=== PATIENT | male | born 1965 | race Caucasian/White ===

== ENCOUNTER 2018-12-11 05:11 | Emergency (ER) | payer OTHER ==
[~2018-12-11] VITALS: Ht 185.4 cm; Wt 108.9 kg
[2018-12-11 05:15] VITALS: BP 136/82
[2018-12-11] MEDS ORDERED: Oxymetazoline 0.05% Na Spray 30ml NASAL ONE (05:30)
--- NOTE | 2018-12-11 05:54 | Emergency Room Report ---
History of Present Illness General Chief Complaint: Seizure Source: Patient (Ben Shafer MD) Present Illness HPI Patient is a 53-year-old male brought in by EMS after witnessed seizure. Patient was noted to be postictal initially after incident. Patient a prior history of brain surgery due to surgical complication from a nasal surgery. He reports taking Keppra 1500 mg twice a day and states his been compliant with his medications. He denies any recent illness. He had reportedly not been having a recent illnesses. (Ben Shafer MD) Allergies: Coded Allergies: No Known Allergies (Unverified , 12/11/18) Patient History Past Medical History: see triage record Reviewed Nursing Documentation: PMH: Agreed; PSxH: Agreed (Ben Shafer MD) Nursing Documentation-PMH Past Medical History: No Stated History (Ben Shafer MD) Review of Systems All Other Systems: negative except mentioned in HPI (Ben Shafer MD) Physical Exam Vital Signs Date Time Temp Pulse Resp B/P (MAP) Pulse Ox O2 Delivery O2 Flow Rate FiO2 12/11/18 05:14 98.2 100 20 136/82 (100) 98 Room Air Sp02 EP Interpretation: reviewed, normal General Appearance: normal inspection, well appearing, no apparent distress, alert, GCS 15, obese, Chronically Ill Head: atraumatic, other - prior craniotomy scar Eyes: bilateral eye PERRL, bilateral eye EOMI ENT: hearing grossly normal, normal voice, other - right nare septal nasal blood, no active bleeding Neck: normal inspection, supple, no bony tend Respiratory: normal inspection, lungs clear, normal breath sounds, no respiratory distress, no retraction, no wheezing Cardiovascular #1: regular rate, rhythm, no edema Gastrointestinal: normal inspection, normal bowel sounds, non tender, soft, no guarding, no hernia Genitourinary: no CVA tenderness Musculoskeletal: normal inspection, back normal, normal range of motion Neurologic: normal inspection, alert, oriented x3, responsive, manager educational III-XII nml as tested, motor strength/tone normal, speech normal Psychiatric: normal inspection, judgement/insight normal, mood/affect normal Skin: other - periorbital petechia (Ben Shafer MD) Medical Decision Making Diagnostic Impression: Primary Impression: Epileptic seizure, generalized Additional Impressions: Anterior epistaxis Medication not available ER Course Patient presented for possible seizure. Differential diagnosis include was not limited to medication noncompliance, hyponatremia, systemic infection, alcohol withdrawal, substance abuse among others. Because of complexity of patient's case laboratory testing and imaging studies were ordered. EKG interpreted by me showed sinus tachycardia without acute ST or T wave changes noted. Patient states that he had not any seizure activity for several years. Patient was noted to be awake and alert. 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 Patient 's reflexes appear to be normal.Patient was noted to have normal mental status. 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 He is able to speak Maltese with 1 of our staff.Patient denies any current headache or discomfort. Patient now states he's been off medication for 3 days. He was given oral keppra. Patient was also given Ativan IV. Patient was noted to have increased facial swelling as well as unprovoked nasal bleeding as seizure occured in bed per . Patient was endorsed to Dr. Forde pending MRI to evaluate for intracranial abnormality. Labs Test 12/11/18 05:30 White Blood Count 11.6 K/UL (4.8-10.8) Red Blood Count 5.61 M/UL (4.70-6.10) Hemoglobin 16.8 G/DL (14.2-18.0) Hematocrit 51.3 % (42.0-52.0) Mean Corpuscular Volume 91 FL (80-99) Mean Corpuscular Hemoglobin 30.0 PG (27.0-31.0) Mean Corpuscular Hemoglobin Concent 32.8 G/DL (32.0-36.0) Red Cell Distribution Width 12.5 % (11.6-14.8) Platelet Count 308 K/UL (150-450) Mean Platelet Volume 5.9 FL (6.5-10.1) Neutrophils (%) (Auto) 43.2 % (45.0-75.0) Lymphocytes (%) (Auto) 44.7 % (20.0-45.0) Monocytes (%) (Auto) 7.4 % (1.0-10.0) Eosinophils (%) (Auto) 3.5 % (0.0-3.0) Basophils (%) (Auto) 1.3 % (0.0-2.0) Sodium Level 137 MMOL/L (136-145) Potassium Level 4.0 MMOL/L (3.5-5.1) Chloride Level 102 MMOL/L (98-107) Carbon Dioxide Level 22 MMOL/L (21-32) Anion Gap 13 mmol/L (5-15) Blood Urea Nitrogen 18 mg/dL (7-18) Creatinine 1.4 MG/DL (0.55-1.30) Estimat Glomerular Filtration Rate 52.6 mL/min (>60) Glucose Level 133 MG/DL (74-106) Calcium Level 9.5 MG/DL (8.5-10.1) (Ben Shafer MD) ER Course Please see above note. Patient here post seizure with noncompliance. Patient received Ativan and also oral Keppra. Awaiting MRI at this time. Patient has a grossly nonfocal neurologic exam and has no complaints of pain. Concern is there was evidence of nasal bleeding and possible facial swelling post seizure. Initially mineral technologist concerned about MRI due to the fact that he has had prior brain surgery. Initially a skull x-ray was ordered. However the patient reports that he has had multiple MRIs done in the past. The skull x-ray was canceled. MRI no acute issue. Post op and injury. Patient stable for outpatient observation and treatment. Laboratory Tests Test 12/11/18 05:30 White Blood Count 11.6 K/UL (4.8-10.8) H Red Blood Count 5.61 M/UL (4.70-6.10) Hemoglobin 16.8 G/DL (14.2-18.0) Hematocrit 51.3 % (42.0-52.0) Mean Corpuscular Volume 91 FL (80-99) Mean Corpuscular Hemoglobin 30.0 PG (27.0-31.0) Mean Corpuscular Hemoglobin Concent 32.8 G/DL (32.0-36.0) Red Cell Distribution Width 12.5 % (11.6-14.8) Platelet Count 308 K/UL (150-450) Mean Platelet Volume 5.9 FL (6.5-10.1) L Neutrophils (%) (Auto) 43.2 % (45.0-75.0) L Lymphocytes (%) (Auto) 44.7 % (20.0-45.0) Monocytes (%) (Auto) 7.4 % (1.0-10.0) Eosinophils (%) (Auto) 3.5 % (0.0-3.0) H Basophils (%) (Auto) 1.3 % (0.0-2.0) Urine Color Pale yellow Urine Appearance Clear Urine pH 5 (4.5-8.0) Urine Specific [place] 1.020 (1.005-1.035) Urine Protein 2+ (NEGATIVE) H Urine Glucose (UA) Negative (NEGATIVE) Urine Ketones 1+ (NEGATIVE) H Urine Blood 4+ (NEGATIVE) H Urine Nitrite Negative (NEGATIVE) Urine Bilirubin Negative (NEGATIVE) Urine Urobilinogen Normal MG/DL (0.0-1.0) Urine Leukocyte Esterase Negative (NEGATIVE) Urine RBC 10-15 /HPF (0 - 0) H Urine WBC 0-2 /HPF (0 - 0) Urine Squamous Epithelial Cells Occasional /LPF Urine Bacteria Few /HPF (NONE) Sodium Level 137 MMOL/L (136-145) Potassium Level 4.0 MMOL/L (3.5-5.1) Chloride Level 102 MMOL/L (98-107) Carbon Dioxide Level 22 MMOL/L (21-32) Anion Gap 13 mmol/L (5-15) Blood Urea Nitrogen 18 mg/dL (7-18) Creatinine 1.4 MG/DL (0.55-1.30) H Estimate Glomerular Filtration Rate 52.6 mL/min (>60) Glucose Level 133 MG/DL (74-106) H Calcium Level 9.5 MG/DL (8.5-10.1) Total Bilirubin 0.3 MG/DL (0.2-1.0) Aspartate Amino Transferase (AST) 28 U/L (15-37) Alanine Aminotransferase (ALT) 19 U/L (12-78) Alkaline Phosphatase 75 U/L (46-116) Total Creatine Kinase 136 U/L (26-308) Troponin I 0.000 ng/mL (0.000-0.056) Total Protein 8.4 G/DL (6.4-8.2) H Albumin 3.8 G/DL (3.4-5.0) Globulin 4.6 g/dL Albumin/Globulin Ratio 0.8 (1.0-2.7) L Urine Opiates Screen Negative (NEGATIVE) Urine Barbiturates Screen Negative (NEGATIVE) Phencyclidine (PCP) Screen Negative (NEGATIVE) Urine Amphetamines Screen Negative (NEGATIVE) Urine Benzodiazepines Screen Negative (NEGATIVE) Urine Cocaine Screen Negative (NEGATIVE) Urine Marijuana (THC) Screen Negative (NEGATIVE) (Sergio Forde MD) EKG Diagnostic Results Rate: tachycardiac Rhythm: NSR ST Segments: no acute changes (Ben Shafer MD) Rhythm Strip Diag. Results EP Interpretation: yes Rhythm: NSR, no PVC's (Ben Shafer MD) Last Vital Signs Date Time Temp Pulse Resp B/P (MAP) Pulse Ox O2 Delivery O2 Flow Rate FiO2 12/11/18 05:14 98.2 100 20 136/82 (100) 98 Room Air Status: improved (Ben Shafer MD) Last Vital Signs Date Time Temp Pulse Resp B/P (MAP) Pulse Ox O2 Delivery O2 Flow Rate FiO2 12/11/18 09:57 97.3 98 19 123/69 98 Room Air Status: improved (Sergio Forde MD) Disposition: HOME, SELF-CARE Condition: Stable Scripts Levetiracetam (KEPPRA) 750 Mg Tablet 1500 MG ORAL BID, #120 TAB Prov: Sergio Forde MD 12/11/18 Referrals: NON PHYSICIAN (PCP) Ben Shafer MD Dec 11, 2018 05:54 Sergio Forde MD Dec 11, 2018 06:43
[2018-12-11 05:57] LABS: BASOPHILS % (AUTO) 1.3 % (0.0-2.0); EOSINOPHILS % (AUTO) 3.5 % (0.0-3.0); HEMATOCRIT 51.3 % (42.0-52.0); HEMOGLOBIN 16.8 G/DL (14.2-18.0); LYMPHOCYTES % (AUTO) 44.7 % (20.0-45.0); MEAN CORPUSCULAR VOLUME 91 FL (80-99); MONOCYTES % (AUTO) 7.4 % (1.0-10.0); NEUTROPHILS % (AUTO) 43.2 % (45.0-75.0); PLATELET COUNT 308 K/UL (150-450); RED BLOOD COUNT 5.61 M/UL (4.70-6.10); RED CELL DISTRIBUTION WIDTH 12.5 % (11.6-14.8); WHITE BLOOD COUNT 11.6 K/UL (4.8-10.8)
[2018-12-11] MEDS ORDERED: LORazepam Inj 2mg/ml 1ml IV ONE (06:00)
[2018-12-11 06:05] LABS: ANION GAP 13 mmol/L (5-15); BLOOD UREA NITROGEN 18 mg/dL (7-18); CALCIUM 9.5 MG/DL (8.5-10.1); CARBON DIOXIDE 22 MMOL/L (21-32); CHLORIDE 102 MMOL/L (98-107); CREATININE 1.4 MG/DL (0.55-1.30); SODIUM 137 MMOL/L (136-145)
[2018-12-11 06:09] LABS: ALANINE AMINOTRANSFERASE 19 U/L (12-78); ALBUMIN 3.8 G/DL (3.4-5.0); ALBUMIN/GLOBULIN RATIO 0.8 (1.0-2.7); ALKALINE PHOSPHATASE 75 U/L (46-116); ASPARTATE AMINO TRANSFERASE 28 U/L (15-37); BILIRUBIN,TOTAL 0.3 MG/DL (0.2-1.0)
--- NOTE | 2018-12-11 06:29 | NUR ---
ED Nurse Note: Patient raimundo RA 24 from home c/o seizure, at time of arrival patient is alert and oriented x4. Sugar was 150. Patient's states that the patient was seizing for about 2 minutes and EMS found patient on his bed with "a puddle of blood in his pillow" at time of arrival patient presents with bruising located on his forehead as well as a nose bleed on his right nostril, patient complains of no pain. patient states that a procedure was done on him around 2009 to which they impacted the frontal lobe of his brain, patient states that an EEG was done and did confirm seizure activity, IV started on right forearm 20 gauge.
--- NOTE | 2018-12-11 06:30 | NUR ---
ED Nurse Note: Dr. Shafer informed that CT is down due to maintenance, Will order MRI, Tiburcio Cavanaugh states that MRI will be ready at about 0700
[2018-12-11 06:38] LABS: APPEARANCE,URINE CLEAR; BILIRUBIN, URINE NEGATIVE (NEGATIVE); COLOR,URINE PALE YELLOW; GLUCOSE, URINE (UA) NEGATIVE (NEGATIVE); KETONES,URINE 1+ (NEGATIVE); LEUKOCYTE ESTERASE ,URINE NEGATIVE (NEGATIVE); NITRITE,URINE NEGATIVE (NEGATIVE); PH,URINE 5 (4.5-8.0); PROTEIN,URINE 2+ (NEGATIVE); UROBILINOGEN,URINE NORMAL MG/DL (0.0-1.0)
[2018-12-11] MEDS ORDERED: levETIRAcetam 500mg/NS100ml 100 ML IVPB ONE (07:00)
[2018-12-11 07:01] LABS: CREATINE KINASE 136 U/L (26-308)
[2018-12-11 07:15] VITALS: BP 125/77
--- NOTE | 2018-12-11 07:15 | NUR ---
ED Nurse Note: Received report from outgoing nurse. Patient is alert and oriented x4, verbally responsive. Breathing even and unlabored. No c/o of pain or any discomfort. No episode of seizure at this time. Vital signs are stable. Family members at bedside.
--- NOTE | 2018-12-11 07:18 | NUR ---
HAND-OFF: Report given to SOCO Spangler.
--- NOTE | 2018-12-11 07:45 | NUR ---
ED Nurse Note: Patient went down for MRI.
--- NOTE | 2018-12-11 08:22 | NUR ---
ED Nurse Note: Came back from MRI in stable condition.
[2018-12-11] MEDS ORDERED: KEPPRA750 MG ORAL (09:34)
--- NOTE | 2018-12-11 09:36 | Diagnostic Imaging Report ---
Indication: Seizure. Technique: The head was imaged in a 1.5 Alyson magnet. Sequences obtained include sagittal and axial T1 FLAIR, axial T2 fast spin echo with fat saturation, axial T2 FLAIR, diffusion and ADC map. Comparison: None There is extensive encephalomalacia demonstrated within the all lobes bilaterally with areas of cystic replacement of brain parenchyma, moderate volume loss involving both frontal lobes and the frontal aspects of the corpus callosum with surrounding T2 hyperintense gliosis. Ex vacuo dilatation of the anterior horns of both lateral ventricles demonstrated left worse than right. A frontal craniotomy has been performed. 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 There is no diffusion restriction to suggest an acute CVA at this time. No compelling evidence of edema or mass effect are identified although evaluation of this is limited without comparison to prior studies. Generalized atrophy of the brain is noted. There is evidence of sinus disease with resection of portions of the nasal turbinates and ethmoid. The frontal sinuses are not seen well and may be on the basis of previous surgery and/or chronic infection. There is mild generalized atrophy of the brain demonstrated. Sella is unremarkable. Osseous bone marrow signal is otherwise normal in appearance. 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 Extensive sinus surgery has also been performed performed involving the ethmoid, frontal sinuses as well as part of the nasal cavity. No evidence of acute CVA, mass effect or edema. Mild atrophy of the brain Findings discussed with Dr. Sergio Forde in the emergency department at 9:30 AM 12/11/2018
--- NOTE | 2018-12-11 09:43 | NUR ---
ED Nurse Note: Pt cleared by ERMDr for discharge. DC instructions/prescription was given and explained to pt and verbalized understanding of teachings. All medical deviecs such as ID band and IV line removed. Pt is AAO x4, ambulatory and left with all personal belongings.
[2018-12-11 09:57] VITALS: BP 123/69
== END 2018-12-11 09:43 | disposition home or self-care (01) ==
LOC: EDBD 05:11 → EMR 05:29
DX: G40.909 Epilepsy, unspecified, not intractable, without status epilepticus (principal); R04.0 Epistaxis; E66.9 Obesity, unspecified; R00.0 Tachycardia, unspecified; Z91.14 Patient's other noncompliance with medication regimen
CPT/HCPCS: 36415; 70551; 80053; 80299; 80307; 81003; 82550; 84484; 85025; 93005; 96365; 96375; 99284; J1953; J7040